=== PATIENT | female | born 2000 | race Two or more races ===

== ENCOUNTER 2019-04-01 22:05 | Emergency (ER) | payer SELFPAY ==
[~2019-04-01] VITALS: Ht 170.2 cm; Wt 64.9 kg
[2019-04-01 22:39] VITALS: BP 127/87
--- NOTE | 2019-04-01 22:55 | NUR ---
PT BIBS. L CALF PAIN STARTED @ 1345. PREOGRESSIVELY GETTING WORST. 06/10 AGGREVATED BY WALKING AND PRESSURE. PT AAOX4, VSS, RESPIRATIONS EVEN AND UNLABORED ON RA W/ NAD NOTED. PT CONNECTED TO THE MONITOR AND POX
[2019-04-01] MEDS ORDERED: IBUPROFEN 400 MG TABLET ONE (23:59)
[2019-04-02] MEDS ORDERED: IBUPROFEN 400 MG TABLET PO ONE
== END 2019-04-02 00:29 | disposition home or self-care (01) ==
LOC: ER 22:08
DX: S86.812A Strain of other muscle(s) and tendon(s) at lower leg level, left leg, initial encounter (principal); J45.909 Unspecified asthma, uncomplicated; Z98.890 Other specified postprocedural states; X58.XXXA Exposure to other specified factors, initial encounter; Y93.89 Activity, other specified; Y92.89 Other specified places as the place of occurrence of the external cause; Y99.8 Other external cause status
CPT/HCPCS: 93971-TC